=== PATIENT | female | born 2000 | race African-American/Black ===

== ENCOUNTER 2021-08-04 15:21 | Emergency (ER) | payer OTHER ==
[~2021-08-04] VITALS: Ht 170.2 cm; Wt 100.0 kg
[~2021-08-04 15:21] MED LIST: ALBU17AE27 IH
[2021-08-04 15:25] VITALS: BP 111/60
[2021-08-04] MEDS ORDERED: BACITRACIN 0.9 GM PACKET OINTMENT TP ONE (16:15)
[2021-08-04] MEDS ORDERED: PERTUSS(ACELL),DIPH,TET VAC/PF 0.5 ML SYRINGE IM. ONE (16:30)
== END 2021-08-04 16:39 | disposition home or self-care (01) ==
LOC: EMS 15:21
DX: S91.302A Unspecified open wound, left foot, initial encounter (principal); J45.909 Unspecified asthma, uncomplicated; W22.8XXA Striking against or struck by other objects, initial encounter; Y93.89 Activity, other specified; Y92.89 Other specified places as the place of occurrence of the external cause; Y99.8 Other external cause status
CPT/HCPCS: 90471; 90715; 99283

== ENCOUNTER 2021-08-07 15:44 | Emergency (ER) | payer OTHER ==
[~2021-08-07] VITALS: Ht 170.2 cm; Wt 100.0 kg
[2021-08-07 15:53] VITALS: BP 109/57
== END 2021-08-07 16:22 | disposition home or self-care (01) ==
LOC: EMS 15:44
DX: S91.302A Unspecified open wound, left foot, initial encounter (principal); F32.9 Major depressive disorder, single episode, unspecified; J45.909 Unspecified asthma, uncomplicated; X58.XXXA Exposure to other specified factors, initial encounter; Y93.89 Activity, other specified; Y92.89 Other specified places as the place of occurrence of the external cause; Y99.8 Other external cause status
CPT/HCPCS: 99281; Z7502

== ENCOUNTER 2021-08-18 12:30 | Emergency (ER) | payer OTHER ==
[~2021-08-18] VITALS: Ht 170.2 cm; Wt 87.7 kg
[2021-08-18 12:38] VITALS: BP 142/58
== END 2021-08-18 13:09 | disposition home or self-care (01) ==
LOC: EMS 12:30
DX: S91.201A Unspecified open wound of right great toe with damage to nail, initial encounter (principal); Z79.899 Other long term (current) drug therapy; X58.XXXA Exposure to other specified factors, initial encounter; Y93.89 Activity, other specified; Y92.89 Other specified places as the place of occurrence of the external cause; Y99.8 Other external cause status
CPT/HCPCS: 99282; Z7502

== ENCOUNTER 2021-08-23 17:32 | Emergency (ER) | payer OTHER ==
[~2021-08-23] VITALS: Ht 170.2 cm; Wt 89.5 kg
[2021-08-23 17:39] VITALS: BP 110/60
== END 2021-08-23 19:42 | disposition home or self-care (01) ==
LOC: EMS 17:33
DX: S91.201A Unspecified open wound of right great toe with damage to nail, initial encounter (principal); F41.9 Anxiety disorder, unspecified; J45.909 Unspecified asthma, uncomplicated; F32.9 Major depressive disorder, single episode, unspecified; X58.XXXA Exposure to other specified factors, initial encounter; Y93.89 Activity, other specified; Y92.89 Other specified places as the place of occurrence of the external cause; Y99.8 Other external cause status
CPT/HCPCS: 99281; Z7502

== ENCOUNTER 2022-07-06 19:02 | Emergency (ER) | payer OTHER ==
[~2022-07-06] VITALS: Ht 170.2 cm; Wt 93.2 kg
[2022-07-06 19:20] VITALS: BP 141/86
== END 2022-07-06 22:39 | disposition home or self-care (01) ==
LOC: EMS 19:02
DX: S90.32XA Contusion of left foot, initial encounter (principal); F41.9 Anxiety disorder, unspecified; F32.9 Major depressive disorder, single episode, unspecified; J45.909 Unspecified asthma, uncomplicated; W22.01XA Walked into wall, initial encounter; Y93.89 Activity, other specified; Y92.89 Other specified places as the place of occurrence of the external cause; Y99.8 Other external cause status
CPT/HCPCS: 99282; Z7502

== ENCOUNTER 2022-10-08 15:12 | Emergency (ER) | payer OTHER ==
[~2022-10-08] VITALS: Ht 170.2 cm; Wt 89.1 kg
[2022-10-08] MEDS ORDERED: NAPR-1025 PO (16:45)
[2022-10-08 17:10] VITALS: BP 131/69
== END 2022-10-08 17:12 | disposition home or self-care (01) ==
LOC: EMS 15:56
DX: S83.92XA Sprain of unspecified site of left knee, initial encounter (principal); F41.9 Anxiety disorder, unspecified; J45.909 Unspecified asthma, uncomplicated; F32.A Depression, unspecified; X58.XXXA Exposure to other specified factors, initial encounter; Y93.89 Activity, other specified; Y92.89 Other specified places as the place of occurrence of the external cause; Y99.8 Other external cause status
CPT/HCPCS: 99282; Z7502

== ENCOUNTER 2025-03-22 05:20 | Emergency (ER) | payer OTHER, MEDICAID ==
[~2025-03-22] VITALS: Ht 170.2 cm; Wt 90.9 kg
[~2025-03-22 05:20] MED LIST changes: -ALBU17AE27 IH; +NAPR-1196 PO
[2025-03-22] MEDS: BACITRACIN 0.9 GM PACKET OINTMENT TP ONE (06:38)
[2025-03-22] MEDS: AMOX TR/POT CLAV 875 MG/125 MG TABLET PO ONE (06:38)
[2025-03-22 07:47] LABS: BASOPHILS % (AUTO) 0.5 % (0.0-2.0); EOSINOPHILS % (AUTO) 1.6 % (1.0-6.0); HEMOGLOBIN 13.5 g/dL (12.0-16.0); LYMPHOCYTES # (AUTO) 2.6 K/uL (1.0-4.8); LYMPHOCYTES % (AUTO) 26.1 % (22.0-44.0); MEAN CORPUSCULAR HEMOGLOBIN 32.2 pg (26.0-34.0); MEAN CORPUSCULAR HGB CONC 34.6 G/dL (31.0-37.0); MEAN CORPUSCULAR VOLUME 93 fL (80-100); MONOCYTES # (AUTO) 1.1 K/uL (0.1-1.0); NEUTROPHILS # (AUTO) 6.2 K/uL (1.8-7.7); NEUTROPHILS % (AUTO) 60.8 % (40.0-70.0); PLATELET COUNT (AUTO) 245 K/uL (150-450); RED BLOOD CELL COUNT(AUTO) 4.19 MIL/uL (4.00-5.20); RED CELL DISTRIBUTION WIDTH 13.2 % (11.5-14.5); WHITE BLOOD COUNT (AUTO) 10.1 K/uL (4.5-11.0)
[2025-03-22] MEDS: IBUPROFEN 600 MG TABLET PO ONE (07:50)
[2025-03-22 08:00] LABS: ANION GAP 12 mmol/L (8-16); CALCIUM, TOTAL 9.1 mg/dL (8.8-10.5); CARBON DIOXIDE 24 mmol/L (22-29); CHLORIDE 100 mmol/L (98-107); CREATININE 0.74 mg/dL (0.60-1.30); GLOMERULAR FILTR. RATE CALC > 60 mL/min (>60); GLUCOSE,RANDOM 115 mg/dL (70-110); POTASSIUM 3.5 mmol/L (3.5-5.1); SODIUM SERUM 136 mmol/L (136-145); UREA NITROGEN, BLOOD 15 mg/dL (7-18)
[2025-03-22 08:02] LABS: ALBUMIN 4.1 g/dL (3.4-5.0); BILIRUBIN,DIRECT 0.2 mg/dL (0.00-0.20); BILIRUBIN,TOTAL 0.6 mg/dL (0.1-1.0); TOTAL PROTEIN, SERUM 8.4 g/dL (6.4-8.2)
[2025-03-22] MEDS: HEPATITIS B VIRUS VACCINE 20 MCG/ML IM. ONE (09:44)
[2025-03-22] MEDS: EMTRICITABINE/TENOFOVIR 200-300 MG TABLET PO ONE (09:45)
[2025-03-22] MEDS: DOLUTEGRAVIR SODIUM 50 MG TABLET PO ONE (09:45)
[2025-03-22 10:23] LABS: HEPATITIS B SURFACE AG (II) NEGATIVE (NEGATIVE)
[2025-03-22 10:51] LABS: HIV ANTI-1,2,P24 AG COMBO Non-Reactive (Non-Reactiv)
[2025-03-22 11:11] VITALS: BP 121/60; PULSE 98; RESP 16; TEMP 98.4; O2SAT 100
[2025-03-22] MEDS ORDERED: EMTR1TAB53 PO (11:13)
[2025-03-22] MEDS ORDERED: AMOX-457 PO (11:13)
[2025-03-22] MEDS ORDERED: DOLU50TA PO (11:13)
[2025-03-23 02:06] LABS: HEPATITIS C AB (EIA) Non Reactive (Non Reactive)
== END 2025-03-22 11:25 | disposition home or self-care (01) ==
LOC: EMS 05:57
DX: S61.451A Open bite of right hand, initial encounter (principal); S61.452A Open bite of left hand, initial encounter; J45.909 Unspecified asthma, uncomplicated; F41.9 Anxiety disorder, unspecified; F32.A Depression, unspecified; Z23 Encounter for immunization; Y04.1XXA Assault by human bite, initial encounter; Y93.89 Activity, other specified; Y92.89 Other specified places as the place of occurrence of the external cause; Y99.0 Civilian activity done for income or pay
CPT/HCPCS: 80048; 80076; 84702; 85025; 86706; 86803; 87340; 87389; 90471; 90746; 99284